=== PATIENT | male | born 1990 | race Caucasian/White ===

== ENCOUNTER 2020-10-29 10:53 | Emergency (ER) | payer OTHER | END 2020-10-29 11:47 | disposition home or self-care (01) | LOC: JVIRT 10:53 | DX: Z20.828 Contact with and (suspected) exposure to other viral communicable diseases (principal) | CPT/HCPCS: C9803; Q3014-GT; U0003 ==

== ENCOUNTER 2022-03-15 22:35 | Emergency (ER) | payer OTHER ==
[2022-03-15 22:43] VITALS: BP 114/70; PULSE 82; TEMP 99.7; BMI 25.0
[2022-03-16] MEDS ORDERED: ONDANSETRON *ODT* 4 MG TABLET SL ONE (00:42)
[2022-03-16] MEDS ORDERED: ONDANSETRON *ODT* 4 MG TABLET ONE (00:42)
== END 2022-03-16 01:02 | disposition home or self-care (01) ==
LOC: FER 22:35
DX: R11.2 Nausea with vomiting, unspecified (principal)
CPT/HCPCS: 99283-25; Q0162